=== PATIENT | female | born 1950 | race Caucasian/White ===

== ENCOUNTER 2024-01-01 08:23 | Day surgery (SDC) | payer OTHER ==
[2023-12-30 14:41] VITALS: BMI 28.5
[2024-01-01] MEDS ORDERED: CIPROFLOXACIN 0.3% EYE DROPS 5 ML BOTTLE ONE (08:33)
[2024-01-01] MEDS ORDERED: PHENYLEPHRINE 2.5% OPTHALMIC DROP 2ML BOTTLE ONE (08:33)
[2024-01-01] MEDS ORDERED: TROPICAMIDE 1% OPHTH SOLN 15 ML BOTTLE ONE (08:33)
[2024-01-01] MEDS ORDERED: CYCLOPENTOLATE 2% OPHTH SOLN 2 ML BOTTLE ONE (08:33)
[2024-01-01] MEDS ORDERED: TETRACAINE 0.5% OPHTH SOLN 2 ML BOTTLE ONE (08:34)
[2024-01-01] MEDS ORDERED: CARBACHOL 0.01% INTRA-OCULAR 1.5 ML VIAL ONE (08:34)
[2024-01-01] MEDS ORDERED: NEO/POLYMYX B SULF/DEXAMETH OPHTHALMIC 5ML BOTTLE ONE (08:34)
[2024-01-01] MEDS ORDERED: BSS (NA/CA/MG/K) BALANCED SALT SOLUTION OPHTH SOLN 15 ML BOTTLE ONE (08:34)
[2024-01-01] MEDS ORDERED: LIDOCAINE 1% P/F 10 MG/ML VIAL ONE (08:34)
[2024-01-01] MEDS: CYCLOPENTOLATE 2% OPHTH SOLN 2 ML BOTTLE OD ONE ×3 (08:45→08:54)
[2024-01-01] MEDS: TROPICAMIDE 1% OPHTH SOLN 15 ML BOTTLE OD ONE ×3 (08:45→08:55)
[2024-01-01] MEDS: CIPROFLOXACIN 0.3% EYE DROPS 5 ML BOTTLE OD ONE ×3 (08:45→08:55)
[2024-01-01] MEDS: PHENYLEPHRINE 2.5% OPHTH SOLN 15 ML BOTTLE OD ONE ×3 (08:45→08:55)
[2024-01-01] MEDS ORDERED: MIDAZOLAM HCL 2 MG/2 ML SINGLE DOSE VIAL ONE (08:47)
[2024-01-01 08:48] VITALS: RESP 18
[2024-01-01 10:34] VITALS: TEMP 97.3
[2024-01-01 11:54] VITALS: BP 142/66; PULSE 68
== END 2024-01-01 11:00 | disposition home or self-care (01) ==
LOC: FASU 08:23
PROVIDERS: ATTEND Ophthalmology
PROC: 08RJ3JZ Replacement of Right Lens with Synthetic Substitute, Percutaneous Approach (ICD-10-PCS; principal; 2024-01-01 10:02)
DX: H26.8 Other specified cataract (principal)
CPT/HCPCS: 66984; V2632; 82962